=== PATIENT | female | born 1960 | race Caucasian/White ===

== ENCOUNTER 2019-07-04 12:02 | Emergency (ER) | payer OTHER ==
[2019-07-04 12:16] VITALS: BP 130/88; PULSE 80; TEMP 97.9; BMI 21.2
[2019-07-04] MEDS ORDERED: DIPHTH,PERTUSS(ACELL),TET 0.5 ML DISP.SYRIN IM ONE ×2 (12:25→12:34)
--- NOTE | 2019-07-04 12:25 | PDOC ---
History of Present Illness - General Chief Complaint: Laceration Stated Complaint: LEFT INDEX FINGER Time Seen by Provider: 07/04/19 12:08 - History of Present Illness Initial Comments: 07/04/19 12:30 58 y/o F no significant medical hx, presenting today after cutting her left index finger with scissors while gardening.She reports scissors was new and not alexandra. She rinsed her finger with tap water after the incident, applied bacitracin ointment and bandaged her finger. She denies any loss of sensation or foreign body in the wound. Her last Tdap or Td was in . She denies any fevers, chills, swelling, purulent wound drainage or warmth around wound site. 07/04/19 12:34 Past History - Past Medical History Allergies/Adverse Reactions: Allergies Allergy/AdvReac Type Severity Reaction Status Date / Time No Known Allergies Allergy Verified 07/04/19 12:04 Home Medications: Ambulatory Orders NK [No Known Home Medication] 07/04/19 - Psycho Social/Smoking Cessation Hx Smoking Status: No Smoking History: Never smoked Number of Cigarettes Smoked Daily: 0 Review of Systems - Review of Systems Constitutional: No: Chills, Fever HEENTM: No: Eye Pain, Blurred Vision Respiratory: No: Cough, Shortness of Breath Cardiac (ROS): No: Chest Pain, Lightheadedness ABD/GI: No: Nausea, Vomiting : No: Burning, Dysuria Musculoskeletal: No: Back Pain, Muscle Pain Integumentary: No: Bruising, Rash Neurological: No: Headache, Numbness Hematologic/Lymphatic: No: Blood Clots, Easy Bleeding *Physical Exam - Physical Exam Comments: 07/04/19 12:57 PE: GENERAL: Awake, alert, and fully oriented, in no acute distress HEAD: No signs of trauma, normocephalic, atraumatic EYES: sclera anicteric, conjunctiva clear ENT: Auricles normal inspection, hearing grossly normal, nares patent, oropharynx clear without exudates. Moist mucosa NECK: Normal ROM, supple, , JVD, or masses LUNGS: No distress, speaks full sentences, clear to auscultation bilaterally HEART: Regular rate and rhythm, normal S1 and S2, no murmurs, rubs or gallops ABDOMEN: Soft, nontender, normoactive bowel sounds. No guarding, no rebound. No masses EXTREMITIES : Normal inspection, Normal range of motion, no edema. approx. 1cm laceration on palmar surface of left index finger, bleeding controlled, sensation intact, 1second capillary refill NEUROLOGICAL: Cranial nerves II through XII grossly intact. Normal speech, normal gait, no focal sensorimotor deficits SKIN: Warm, Dry, normal turgor, no rashes or lesions noted Discharge - Discharge Information Problems reviewed: Yes Clinical Impression/Diagnosis: Laceration Condition: Good Disposition: HOME - Admission No - Follow up/Referral - Patient Discharge Instructions Patient Printed Discharge Instructions: DI for Laceration Repair Steri-Strips Additional Instructions: you were seen in the ER for a cut to your finger Keep the wound dry. an reapply the steri-strips you have been given as instructed. RETURN TO THE ER if you develop fevers or chills the finger becomes swollen or red/ any spreading redness or warmth of your finger any pus coming out of the wound or any red streaking - Post Discharge Activity
--- NOTE | 2019-07-04 12:35 | PDOC ---
Attending Attestation - Resident Resident Name: Adelina Mendoza - ED Attending Attestation I have performed the following: I have examined & evaluated the patient, The case was reviewed & discussed with the resident, I agree w/resident's findings & plan - HPI HPI: 07/04/19 12:31 Patient presents with a laceration to her left index finger sustained while gardening yesterday. She was cutting mint and accidentally cut her index finger. She cleansed the wound at the time. She applied bacitracin ointment. Today she noted some persistent bleeding, so she came to the ED for evaluation. Of note, her last tetanus booster was greater than 10 years ago. - Physicial Exam PE: 07/04/19 12:34 Left index finger with distal laceration, adjacent to the fingernail, approximately 1 cm, no bleeding noted. No signs of infection. No drainage, no erythema. - Medical Decision Making 07/04/19 12:34 Assessment: Minor laceration of the left index finger, no signs of infection. Plan: Tetanus booster (Boostrix) Wound cleansing with saline irrigation Steri-Strips
== END 2019-07-04 13:14 | disposition home or self-care (01) ==
LOC: FER 12:02
PROC: 0HQGXZZ Repair Left Hand Skin, External Approach (ICD-10-PCS; principal; 2019-07-04)
PROC: 3E0234Z Introduction of Serum, Toxoid and Vaccine into Muscle, Percutaneous Approach (ICD-10-PCS; 2019-07-04)
DX: S61.211A Laceration without foreign body of left index finger without damage to nail, initial encounter (principal); W27.1XXA Contact with garden tool, initial encounter; Y93.H2 Activity, gardening and landscaping; Y92.007 Garden or yard of unspecified non-institutional (private) residence as the place of occurrence of the external cause
CPT/HCPCS: 90715; 99282-25